=== PATIENT | male | born 1990 | race Caucasian/White ===

== ENCOUNTER 2021-07-23 16:01 | Outpatient (CLI) | payer OTHER, SELFPAY ==
--- NOTE | ~2021-07-23 | XR_ITS ---
XR wrist RT min 3V DATE: 07/23/2021 16:29 INDICATION: Bilateral medial wrist pain; no injury. TECHNIQUE: 4 views COMPARISON: None FINDINGS: No fracture or dislocation, periosteal reaction or bone destruction, erosive change or arnol drocalcinosis. Joint spaces are preserved. IMPRESSION: Negative Reviewed, dictated and finalized at location A. IMPRESSION: Negative
--- NOTE | ~2021-07-23 | XR_ITS ---
XR wrist LT min 3V DATE: 07/23/2021 16:30 INDICATION: Medial wrist pain for 2 weeks. No known injury. TECHNIQUE: 4 views COMPARISON: None FINDINGS: No fracture or dislocation, periosteal reaction or bone destruction, joint space narrowing, erosive change or chondrocalcinosis. IMPRESSION: Negative Reviewed, dictated and finalized at location A. IMPRESSION: Negative
[2021-07-23 16:30] LABS: Basophils Absolute Auto 0.03 K/mm3 (0.00-0.10); Basophils Percent Auto 0.4 % (0.0-1.0); Eosinophils Percent Auto 1.4 % (1.0-6.0); Hemoglobin 14.2 g/dL (14.0-18.0); Immature Granulocyte Absolute 0.02 K/mm3 (0.00-0.00); Immature Granulocyte Percent A 0.3 % (0.0-0.0); Lymphocytes Absolute Auto 2.01 K/mm3 (1.10-4.50); Lymphocytes Percent Auto 27.9 % (18.0-42.0); Mean Corpuscular Hemoglobin 29.8 pg (27.0-31.0); Mean Corpuscular Volume 90.1 fL (78.0-102.0); Mean Platelet Volume 9.6 fl (8.7-11.0); Monocytes Absolute Auto 0.55 K/mm3 (0.10-0.90); Monocytes Percent Auto 7.6 % (2.0-11.0); Neutrophils Absolute Auto 4.5 K/mm3 (1.7-7.2); Neutrophils Percent Auto 62.4 % (50.0-70.0); Platelet Count Result 291 K/mm3 (150-420); Red Blood Count 4.77 M/mm3 (4.70-6.10); White Blood Count 7.2 K/mm3 (4.8-10.8)
[2021-07-23 16:47] LABS: Alanine Aminotransferase 18 U/L (16-63); Albumin Level 4.4 g/dL (3.4-5.0); Alkaline Phosphatase 81 U/L (46-116); Anion Gap 8 mmol/L (8-16); Aspartate Amino Transferase 15 U/L (15-37); Bilirubin,Total 0.5 mg/dL (0.00-1.00); Blood Urea Nitrogen 15 mg/dL (7-18); Calcium 9.5 mg/dL (8.5-10.1); Carbon Dioxide 29 mmol/L (21-32); Chloride 102 mmol/L (98-108); Estimated Glomerular Filt Rate > 60; Glucose 86 mg/dL (70-99); Osmolality Calculated 287 mOsm/kg (285-295); Potassium 3.9 mmol/L (3.5-5.1); Sodium 139 mmol/L (136-145)
[2021-07-23 16:56] LABS: CRP < 0.2 mg/dL (0.0-0.9)
[2021-07-28 18:36] LABS: HLA B27 Negative (Negative)
== END 2021-07-23 16:02 | disposition home or self-care (01) ==
LOC: CHSLAB 16:05
PROVIDERS: PCP Internal Medicine; Visit Provider Internal Medicine
DX: M54.9 Dorsalgia, unspecified (principal); M25.532 Pain in left wrist; M25.531 Pain in right wrist
CPT/HCPCS: 36415; 73110; 80053; 85025; 86038; 86140; 86812

== ENCOUNTER 2021-08-26 15:48 | Outpatient (CLI) | payer OTHER, SELFPAY ==
--- NOTE | ~2021-08-26 | XR_ITS ---
XR knee RT 3V DATE: 08/26/2021 16:14 INDICATION: Twisting injury 2 weeks ago with persistent lateral right knee pain TECHNIQUE: AP, lateral and sunrise views COMPARISON: 03/03/2010 right knee FINDINGS: No fracture or dislocation or joint effusion, radiopaque intra-articular loose body or arnol drocalcinosis is detected. Joint spaces are well preserved. IMPRESSION: No significant abnormality Reviewed, dictated and finalized at location A. IMPRESSION: No significant abnormality
--- NOTE | ~2021-08-26 | XR_ITS ---
EXAMINATION: XR thoracic spine 3V DATE: 08/26/2021 16:13 INDICATION: Right-sided back pain TECHNIQUE: AP, lateral and lateral swimmer's views of the thoracic spine were obtained. COMPARISON: None. FINDINGS: There is no fracture, dislocation, or subluxation. The vertebral body heights, alignment, a nd intervertebral disc spaces are normal. The paravertebral soft tissues are unremarkable. IMPRESSION: 1. No acute osseous abnormality. Reviewed, dictated and finalized at location F.
== END 2021-08-26 15:49 | disposition home or self-care (01) ==
LOC: CHSIMG 15:50
PROVIDERS: PCP Internal Medicine; Visit Provider Nurse Practitioner Family
DX: M54.9 Dorsalgia, unspecified (principal); M25.561 Pain in right knee
CPT/HCPCS: 72072; 73562

== ENCOUNTER 2024-09-16 15:12 | Outpatient (CLI) | payer OTHER, SELFPAY ==
--- NOTE | ~2024-09-16 | XR_ITS ---
XR_[id number]_CR Ordering provider: Bala Burgess MD History: . cervical radiculopathy . Comparison: None. FINDINGS: VERTEBRAL BODIES: Normal height and alignment. No visible fracture or subluxation. The dens is intact . DISK SPACES: Well maintained. PARASPINOUS SOFT TISSUES: No prevertebral soft tissue swelling. IMPRESSION: No acute osseous abnormality cervical spine. Reviewed, dictated and finalized at location A.
== END 2024-09-16 15:13 | disposition home or self-care (01) ==
LOC: CHSIMG 15:15
PROVIDERS: PCP Internal Medicine; Visit Provider Internal Medicine
DX: M54.12 Radiculopathy, cervical region (principal)
CPT/HCPCS: 72040

== ENCOUNTER 2024-11-06 14:36 | Outpatient (CLI) | payer OTHER, SELFPAY ==
--- OUTSIDE RECORDS SUMMARY | 2024-11-06 14:40 | XMS_ITS | Clinical Summary ---
Author Organization [facility] Address [address] [place] [address] Care Team Providers Care Child Day Care Provider Name Role Phone Bala Burgess MD Primary Care Provider [phone] Allergies No known active allergies Medications omeprazole (PriLOSEC) 40 mg capsule 0 Active ibuprofen (ADVIL,MOTRIN) 800 mg tablet 0 Active potassium citrate ER (UROCIT-K) 10 mEq (1,080 mg) CR tablet Take 1 tablet (10 mEq total) by mouth 2 (two) times a day [address] (CYMBALTA) 30 mg capsule Take 1 capsule (30 mg total) by mouth daily 2 Active eluxadoline (Viberzi) 100 mg tablet Take 1 tablet (100 mg total) by mouth 2 (two) times a day 60 tablet 3 3 Active dexlansoprazole (DEXILANT) 60 mg capsule Take 1 capsule (60 mg total) by mouth daily 30 capsule [address] (PROTONIX) 40 mg EC tablet Take 1 tablet (40 mg total) by mouth 2 (two) times a day Take 1 tablet by mouth twice a day for two weeks, then take 1 tablet by mouth daily 90 tablet 1 3 Active famotidine (PEPCID) 20 mg tablet Take 1 tablet (20 mg total) by mouth 2 (two) times a day 180 tablet 4 Active hydrocortisone 2.5 % cream Apply topically 2 (two) times a day for 14 days May use for intermittent episodes of hemorrhoidal flares 30 g 5 Active dicyclomine (BENTYL) 20 mg tablet Take 1 tablet (20 mg total) by mouth 4 (four) times a day as needed (Abdominal cramping) 120 tablet 5 Active Active Problems Problem Noted Date Diagnosed Date Rectal bleeding 06/28/2024 Chronic diarrhea 06/28/2024 Gastroesophageal reflux disease without esophagi tis 01/24/2023 Esophageal dysphagia 04/18/2022 Assessment & Plan (01/24/2023 3:43 PM CDT): Dxilant trial Assessment & Plan (04/18/2022 2:46 PM HOME THEATER EXPERT): Continue omeprazol 40 every day and egd Chronic pain 12/03/2019 Irritable bowel syndrome with diarrhea 0 Assessment & Plan (04/18/2022 2:45 PM HOME THEATER EXPERT): Fresh fruit tid, bentyl 40 mg 30 mins ac dinner Assessment & Plan (03/08/2021 2:05 PM HOME THEATER EXPERT): vewry happy with the viberzi. Continue and return prn pr one yr Assessment & Plan (01/25/2021 3:21 PM CDT): Cbc cmp,esr,crp viberzi 1009 bid Return 4 weeks Assessment & Plan (11/18/2019 1:55 PM CDT): 1 yr of pc watery stool with urgency. No blood, no systemic sx/signs. Sx not daily. Offered colooscopy but he opts to try treat ibs-d. Will try hi fiber doiet and viberzi and review poop sheet in 4 weks. Encounters Date Type Department Care Team Description 10/25/2024 Telephone [facility] Gastroenterology at [address] [place] [address] Debo Guerrier Colonoscopy Cancel 10/08/2024 Telephone [facility] Gastroenterology at [address] [place] [address] Debo Guerrier Prep Instructions 08/28/2024 Telephone [facility] Gastroenterology at [place] 4 [facility] [address] [place] [address] Bala Burgess MD Appointment; Schedule Colonoscopy from Last 3 Months Surgical History Surgery Date Site/Laterality Comments ESOPHAGOGASTRODUODENOSCOPY Medical History Medical History Date Comments GERD (gastroesophageal reflux disease) IBS (irritable bowel syndrome) Social History Tobacco Use Types Packs/Day Years Used Date Smoking Tobacco: Never Smokeless Tobacco: Never Tobacco Cessation:Counseling Given: Not Answered AUDIT-C Answer Date Recorded Q1: How often do you have a drink containing alc ohol? Never 01/24/2023 Average Number of Drinks Not on file 023 Frequency of Binge Drinking Not on file 12/27 Personal Safety Answer Date Recorded Getting School Help Needed Denies 03/16 Sex and Gender Information Value Date Recorded Sex Assigned at Not on file Legal Sex Male 10:37 AM CDT Gender Identity Not on file Sexual Orientation Not on file Obstetrics History Last Filed Vital Signs Vital Sign Reading Time Taken Comments Blood Pressure 129/88 06/28/2024 2:20 PM CDT Pulse 76 01/24/2023 3:18 PM CDT Temperature 36.6 C (97.8 F) 05/02/2022 8:55 AM HOME THEATER EXPERT Respiratory Rate 18 05/02/2022 8:55 AM HOME THEATER EXPERT Oxygen Saturation 98% 06/28/2024 2:20 PM CDT Inhaled Oxygen Concentration - - Weight 114.3 kg (251 lb 14.4 oz) 06/28/2024 2:20 PM CDT Height 182.9 cm (6') 06/28/2024 2:20 PM CDT Body Mass Index 34.16 06/28/2024 2:20 PM CDT Plan of Treatment Upcoming Encounters Date Type Department Care Team (Late st Contact Info) Description 11/21/2024 Hospital Encounter [facility] 1 [place] [address] Cristino Barrera DO [address] [place] [address] [address] [place] [address] Scheduled Procedures Name Priority Associated Diagnoses Date/Ti me COLONOSCOPY Rectal bleeding Chronic diarrhea Health Maintenance Due Date Last Done Comments Depression Screening 1989 Hepatitis C Screening 1989 DTaP/Tdap/Td Vaccine (5 - Tdap) 2000 12/14/1994, 12/26/1991, 07/26/1990, Additional history exists Varicella Vaccines (1 of 2 - 13+ 2-dose series) 2002 Regular Well Visit/Exam 18-64 12/07/2007 HPV Vaccines (1 - 3-dose SCDM series) 2016 Influenza Vaccine (#1) 2024 Hepatitis B Screening Completed 06/19/2000 , 02/14/2000, 12/23/1999 Pneumococcal vaccine <65 Aged Out No longer eligible based on patient's age to complete this topic Insurance [facility] Advance Directives For more information, please contact: [phone] * Full Code (Latest Code Status on File) Date Activated Date Inactivated Comments 05/02/2022 7:23 AM 05/02/2022 1:26 PM Care Teams Child Day Care Provider Relationship Specialty Start Date End Date Bala Burgess MD PCP - General Internal Medicine 10/22/19
--- OUTSIDE RECORDS SUMMARY | 2024-11-06 14:40 | XMS_ITS | Clinical Summary ---
Author Organization [facility] Address [facility] [place] [address] Care Team Providers Care Conduit Reamer Operator Name Role Phone Bala Burgess MD Primary Care Provider [phone] Allergies No known active allergies Medications omeprazole 40 MG capsule Take 40 mg by mouth daily. Active polycarbophil (FIBER) 625 MG tablet Take 625 mg by mouth daily. Active HYDROcodone-acet aminophen 5-325 MG tabletIndication s:Acute Pain < 7 Day Supply Take 1 tablet by mouth every 6 (six) hours as needed. Indications : Acute Pain < 7 Day Supply 8 tablet 08/13/2020 Active potassium citrate CR (UROCIT-K 10) 10 MEQ (1080 MG) tablet Take 1 tablet (10 mEq total) by mouth 2 (two) times daily. 180 tablet 1 02/02/2021 Active Active Problems No known active problems Social History Tobacco Use Types Packs/Day Years Used Date Smoking Tobacco: Never Smokeless Tobacco: Never Alcohol Use Standard Drinks/Week Comments Never 0 (1 standard drink = 0.6 oz pur e alcohol) AUDIT-C Answer Date Recorded Frequency of Alcohol Consumption Never 08/18/2019 Average Number of Drinks Not on file 020 Frequency of Binge Drinking Not on file 07/26 Sex and Gender Information Value Date Recorded Sex Assigned at Not on file Legal Sex Male 11:32 PM COUNTERINTELLIGENCE ANALYST Gender Identity Not on file Sexual Orientation Not on file Last Filed Vital Signs Vital Sign Reading Time Taken Comments Blood Pressure 128/68 05/18/2021 2:28 AM COUNTERINTELLIGENCE ANALYST Pulse 87 05/18/2021 2:28 AM COUNTERINTELLIGENCE ANALYST Temperature 35.9 C (96.7 F) 05/18/2021 2:28 AM COUNTERINTELLIGENCE ANALYST Respiratory Rate 16 05/18/2021 2:28 AM COUNTERINTELLIGENCE ANALYST Oxygen Saturation 98% 05/18/2021 2:28 AM COUNTERINTELLIGENCE ANALYST Inhaled Oxygen Concentration - - Weight 117.9 kg (260 lb) 05/18/2021 2:28 AM COUNTERINTELLIGENCE ANALYST Height 185.4 cm (6' 1) 05/18/2021 2:28 AM COUNTERINTELLIGENCE ANALYST Body Mass Index 34.3 05/18/2021 2:28 AM COUNTERINTELLIGENCE ANALYST Plan of Treatment Health Maintenance Due Date Last Done Comments Annual Physical 1992 Hepatitis C 12/07/2007 DTaP, Tdap and Td Vaccines (1 - Tdap) 2008 12/14/1994, 12/26/1991, 07/26/1990, Additional history exists Hepatitis B Vaccines (1 of 3 - 19+ 3-dose series) 2008 HPV Vaccines (1 - 3-dose SCDM series) 2016 COVID-19 Vaccine (2023- season) 2023 Meningococcal B Vaccine Aged Out No l onger eligible based on patient's age to complete this topic Meningococcal Vaccine Aged Out No frantz max eligible based on patient's age to complete this topic Pneumococcal Vaccine: Pediatrics (0 to 5 Years) and At-Risk Patients (6 to 49 Years) Aged Out No longer eligible based on patient's age to complete this topic RSV Immunizations Under 20 Months Aged Out No longer eligible based on patient's age to complete this topic Insurance [facility] [employer] * Guarantor: Vic Montoya Account Type Relation to Patient Date of Phone Billing Address Ori Mackay B3 Self 1990 [address] [place] [address] [employer] Care Teams Conduit Reamer Operator Relationship Specialty Start Date End Date Bala Burgess MD [address] [place] [address] PCP - General INTERNAL MEDICINE 12/18/19
--- OUTSIDE RECORDS SUMMARY | 2024-11-06 14:40 | XMS_ITS | Encounter Summary ---
Author Organization [facility] Address [facility] [place] [address] Care Team Providers Care Household Personal Assistant Name Role Phone Bala Burgess MD Primary Care Provider [phone] Encounter Details Date Type Department Care Team (Late st Contact Info) Description 06/10/2017 Abstract [facility] CONVERSION [address] [place] [address] , Generic ConversionMD Social History Tobacco Use Types Packs/Day Years Used Date Smoking Tobacco: Never Assessed Sex and Gender Information Value Date Recorded Sex Assigned at Not on file Legal Sex Male 11:32 PM INVENTORY MANAGEMENT SPECIALIST Gender Identity Not on file Sexual Orientation Not on file documented as of this encounter Plan of Treatment Not on file documented as of this encounter Visit Diagnoses Not on filedocumented in this encounter Care Teams Household Personal Assistant Relationship Specialty Start Date End Date Bala Burgess MD [address] [place] [address] PCP - General INTERNAL MEDICINE 12/18/19 documented as of this encounter
--- OUTSIDE RECORDS SUMMARY | 2024-11-06 14:40 | XMS_ITS | Encounter Summary ---
Author Organization [facility] Address [address] [place] [address] Care Team Providers Care Mechanical Supervisor Name Role Phone Bala Burgess MD Primary Care Provider [phone] Encounter Details Date Type Department Care Team (Late st Contact Info) Description 09/01/2018 Abstract [facility] CONVERSION [address] [place], [place] [id number] , Generic Conversion, Social History Tobacco Use Types Packs/Day Years Used Date Smoking Tobacco: Never Assessed Sex and Gender Information Value Date Recorded Sex Assigned at Not on file Legal Sex Male 11:32 PM MECHANICAL MAINTENANCE WORKER Gender Identity Not on file Sexual Orientation Not on file documented as of this encounter Plan of Treatment Not on file documented as of this encounter Visit Diagnoses Not on filedocumented in this encounter Care Teams Mechanical Supervisor Relationship Specialty Start Date End Date Bala Burgess MD [address] [place] [id number] PCP - General INTERNAL MEDICINE 12/18/19 documented as of this encounter
--- OUTSIDE RECORDS SUMMARY | 2024-11-06 14:40 | XMS_ITS | Clinical Summary ---
Author Organization [facility] Address [address], [address] [address] Phone Care Team Providers Care Turf Keeper Name Role Phone Bala Burgess MD Primary Care Provider [phone] Social History Tobacco Use Types Packs/Day Years Used Date Smoking Tobacco: Never Assessed Sex and Gender Information Value Date Recorded Sex Assigned at Not on file Legal Sex Male 11:12 AM CDT Gender Identity Not on file Sexual Orientation Not on file Plan of Treatment Health Maintenance Due Date Last Done Comments Hepatitis C Virus (HCV) Screening 1989 TdaP Immunization 1989 Human Papillomavirus (HPV) Immunization (1 - 3-dose SCDM series) 2016 SARS-COV-2 Immunization ( season) 2023 Influenza Immunization (#1) 2024 Respiratory Syncytial Virus (RSV) Immunization (Adult) (1 - 1-dose 75+ series) 2064 DTaP/Tdap/Td Immunization Discontinued 1994, 12/26/1991, 07/26/1990, Additional history exists Hepatitis B Immunization Completed 001, 02/14/2000, 12/23/1999 Meningococcal Immunization (ACWY) Aged Out No longer eligible based on patient's age to complete this topic Pneumococcal Immunization Combined Aged Out No longer eligible based on patient's age to complete this topic Rotavirus Immunization Aged Out No lo nger eligible based on patient's age to complete this topic Care Teams Turf Keeper Relationship Specialty Start Date End Date Bala Burgess MD [address] [place] [address] PCP - General Internal Medicine 08/24/18
[2024-11-06 14:53] LABS: Hematocrit 42.6 % (40.0-54.0); Hemoglobin 13.9 g/dL (14.0-18.0); Mean Corpuscular HGB Conc 32.6 g/dL (32-36); Mean Corpuscular Hemoglobin 28.9 pg (27.0-31.0); Mean Corpuscular Volume 88.6 fL (78.0-102.0); Platelet Count Result 348 K/mm3 (150-420); Red Blood Count 4.81 M/mm3 (4.70-6.10); White Blood Count 9.2 K/mm3 (4.8-10.8)
[2024-11-06 14:54] LABS: Add Urine Microscopic? NO; Appearance Urine Clear (Clear); Glucose Urine UA Negative (Negative); Leukocyte Esterase Ur Negative (Negative); Nitrate Urine Negative (Negative); Specific Grav Ur >= 1.030 (1.010-1.020)
[2024-11-06 15:31] LABS: Cannabinoid Screen Urine Negative (Negative)
[2024-11-06 16:25] LABS: Alanine Aminotransferase 20 U/L (6-50); Albumin Level 4.8 g/dL (3.5-5.1); Alkaline Phosphatase 82 U/L (38-126); Anion Gap 9 mmol/L (4-12); Aspartate Amino Transferase 29 U/L (17-59); Bilirubin,Total 0.6 mg/dL (0.2-1.3); Blood Urea Nitrogen 12 mg/dL (9-20); CRP 0.7 mg/dL (<1.0); Calcium 10.0 mg/dL (8.4-10.2); Carbon Dioxide 26 mmol/L (22-30); Chloride 106 mmol/L (98-107); Estimated Glomerular Filt Rate > 60; Glucose 92 mg/dL (65-110); Magnesium 1.8 mg/dL (1.6-2.3); Osmolality Calculated 291 mOsm/kg (285-295); Potassium 4.0 mmol/L (3.4-5.0); Sodium 141 mmol/L (137-145); Total Protein 7.5 g/dL (6.3-8.2)
[2024-11-06 16:38] LABS: Free T4 Free Thyroxine 0.80 ng/dL (0.78-2.19)
[2024-11-06 16:39] LABS: Free T3 4.84 pg/mL (2.18-3.98)
[2024-11-06 16:52] LABS: Thyroid Stimulating Hormone 0.869 uIU/mL (0.465-4.680)
== END 2024-11-06 14:37 | disposition home or self-care (01) ==
PROVIDERS: PCP Internal Medicine; Visit Provider Internal Medicine
DX: R42 Dizziness and giddiness (principal); R25.1 Tremor, unspecified; F41.9 Anxiety disorder, unspecified; R51.9 Headache, unspecified
CPT/HCPCS: 36415; 80053; 80307; 81003; 83735; 84439; 84443; 84481; 85027; 86140

== ENCOUNTER 2024-11-13 09:57 | Outpatient (CLI) | payer OTHER, SELFPAY ==
--- NOTE | 2024-11-13 10:00 | NEURO_ITS ---
Impression: # Non-diabetic complains of left upper extremity pain. ? # Left Ulnar Neuropathy around the elbow ? # Normal Needle/ EMG exam Nerve Conduction Studies ?Stim Site NR Peak (ms) P-T Amp (?V) Site1 Site2 Delta-P (ms) Dist (cm) Trent (m/s) Left Median Anti Sensory (2-3nd Digit) Wrist ? 3.2 34.7 Wrist 2-3nd Digit 3.2 14.0 44 Wrist ? 3.2 31.6 Wrist 2-3nd Digit 3.2 14.0 44 Left Radial Anti Sensory (Base 1st Digit) Wrist ? 1.2 17.6 Wrist Base 1st Digit 1.2 0.0 Left Ulnar Anti Sensory (5th Digit) Wrist ? 2.8 33.8 Wrist 5th Digit 2.8 14.0 50 ?Stim Site NR Onset (ms) O-P Amp (mV) Site1 Site2 Delta-0 (ms) Dist (cm) Trent (m/s) Left Median Motor (Abd Poll Brev) Wrist ? 3.8 1.5 Elbow Wrist 5.3 32.0 60 Elbow ? 9.1 2.0 Left Ulnar Motor (Abd Dig Minimi) Wrist ? 3.4 6.3 A Elbow Wrist 6.1 31.0 51 A Elbow ? 9.5 4.7 B Elbow Wrist 4.4 23.0 52 B Elbow ? 7.8 2.7 F Wave Studies ?NR F-Lat (ms) L-R F-Lat (ms) Left Median (Mrkrs) (Abd Poll Brev) ? 33.63 Left Ulnar (Mrkrs) (Abd Dig Min) ? 32.81 Electromyography ?Side Muscle Nerve Root Ins Act Fibs Amp Dur Recrt Comment Left 1stDorInt Ulnar C8-T1 Nml Nml Nml Nml Nml Left Ext Indicis Radial (Post Int) C7-8 Nml Nml Nml Nml Nml Left Ext Digitorum Radial (Post Int) C7-8 Nml Nml Nml Nml Nml Left BrachioRad Radial C5-6 Nml Nml Nml Nml Nml Left PronatorTeres Median C6-7 Nml Nml Nml Nml Nml Left Abd Poll Brev Median C8-T1 Nml Nml Nml Nml Nml Left ABD Dig Min Ulnar C8-T1 Nml Nml Nml Nml Nml Left FlexPolLong Median (Ant Int) C7-8 Nml Nml Nml Nml Nml Left Abd Poll Long Radial (Post Int) C7-8 Nml Nml Nml Nml Nml
--- OUTSIDE RECORDS SUMMARY | 2024-11-13 10:11 | XMS_ITS | Clinical Summary ---
Author Organization [facility] Address [address], [address] [address] Phone Care Team Providers Care Rn Lactation Name Role Phone Bala Burgess MD Primary Care Provider [phone] Social History Tobacco Use Types Packs/Day Years [...] age to complete this topic Care Teams Rn Lactation Relationship Specialty Start Date End Date Bala Burgess MD [address] [place] [address] PCP - General Internal Medicine 08/24/18
--- OUTSIDE RECORDS SUMMARY | 2024-11-13 10:11 | XMS_ITS | Clinical Summary ---
Author Organization [facility] Address [address] [place] [address] Care Team Providers Care Physician Obstetrician Name Role Phone Bala Burgess MD Primary Care Provider [phone] Allergies No known active allergies Medications omeprazole [...] trial Assessment & Plan (04/18/2022 2:46 PM CREDIT RISK MODELER): Continue omeprazol 40 every day and egd Chronic pain 12/03/2019 Irritable bowel syndrome with diarrhea 0 Assessment & Plan (04/18/2022 2:45 PM CREDIT RISK MODELER): Fresh fruit tid, bentyl 40 mg 30 mins ac dinner Assessment & Plan (03/08/2021 2:05 PM CREDIT RISK MODELER): vewry happy with the viberzi. Continue and [...] Type Department Care Team Description 10/25/2024 Telephone [facility] Gastroenterology at [address] [place] [address] Debo Guerrier Colonoscopy Cancel 10/08/2024 Telephone [facility] Gastroenterology at [address] [place] [address] Debo Guerrier Prep Instructions 08/28/2024 Telephone [facility] Gastroenterology at [place] [address] [facility] [address] [place] [address] Bala Burgess MD Appointment; Schedule [...] 36.6 C (97.8 F) 05/02/2022 8:55 AM CREDIT RISK MODELER Respiratory Rate 18 05/02/2022 8:55 AM CREDIT RISK MODELER Oxygen Saturation 98% 06/28/2024 2:20 PM CDT Inhaled Oxygen Concentration - - Weight 114.3 kg (251 lb 14.4 oz) 06/28/2024 2:20 PM CDT Height 182.9 cm (6') 06/28/2024 2:20 PM CDT Body Mass Index 34.16 06/28/2024 2:20 PM CDT Plan of Treatment Upcoming Encounters Date Type Department Care Team (Late st Contact Info) Description 11/21/2024 Hospital Encounter [facility] [address] [place] [address] Cristino Barrera DO [address] [place] [address] [address] [place] [address] Scheduled Procedures Name Priority Associated Diagnoses Date/Ti [...] patient's age to complete this topic Insurance [facility] Advance Directives For more information, please contact: [phone] * Full Code (Latest Code Status on File) Date Activated Date Inactivated Comments 05/02/2022 7:23 AM 05/02/2022 1:26 PM Care Teams Physician Obstetrician Relationship Specialty Start Date End Date Bala Burgess MD PCP - General Internal Medicine 10/22/19
== END 2024-11-13 09:58 | disposition home or self-care (01) ==
PROVIDERS: PCP Internal Medicine; Visit Provider Internal Medicine
DX: G56.22 Lesion of ulnar nerve, left upper limb (principal)
CPT/HCPCS: 95886; 95909

== ENCOUNTER 2024-11-23 08:59 | Outpatient (CLI) | payer OTHER, SELFPAY ==
--- NOTE | ~2024-11-23 | MR_ITS ---
EXAMINATION: MR brain/brain stem wo con DATE: 11/23/2024 09:40 INDICATION: 2 months of headache and dizziness TECHNIQUE: Magnetic resonance imaging (MRI) of the brain and brainstem was performed without intravenous contrast. Sequences included sagittal and axial T1-weighted SE, axial diffusion-weighted FS SE, axial T2*-weighted GRE, axial T2-weighted FLAIR, and axial T2-weighted FSE. Postcontrast axial and coronal T1- weighted SE was obtained. Apparent diffusion coefficient (ADC) maps were created. COMPARISON: None. FINDINGS: There are no areas of restricted diffusion to suggest acute infarction. No intracranial hemorrhage or abnormal intracranial mass lesion. There are no intraparenchymal signal abnormalities seen on the other pulse sequences. The ventricles are symmetric and normal in size. There are no abnormal extra-axial fluid collections. Flow voids are seen in the cerebral arteries on the T2- weighted sequences consistent with their expected patency. Mild mucosal thickening in the left maxillary and bilateral ethmoid sinuses. Visualized orbits and soft tissues are unremarkable. IMPRESSION: 1. Normal brain. No acute intracranial process. Reviewed, dictated and finalized at location A.
--- OUTSIDE RECORDS SUMMARY | 2024-11-23 09:02 | XMS_ITS | Clinical Summary ---
Author Organization [facility] Address [address], [address] [address] Phone Care Team Providers Care Food Analyst Name Role Phone Bala Burgess MD Primary Care Provider [phone] Social History Tobacco Use Types Packs/Day Years [...] age to complete this topic Care Teams Food Analyst Relationship Specialty Start Date End Date Bala Burgess MD [address] [place] [address] PCP - General Internal Medicine 08/24/18
--- OUTSIDE RECORDS SUMMARY | 2024-11-23 09:02 | XMS_ITS | Clinical Summary ---
[facility] Organization [facility] Address [address] [place] [address] Care Team Providers Care Host Coordinator Name Role Phone Bala Burgess MD Primary Care Provider [phone] Allergies No known active allergies Medications omeprazole [...] trial Assessment & Plan (04/18/2022 2:46 PM REPORTING LEAD): Continue omeprazol 40 every day and egd Chronic pain 12/03/2019 Irritable bowel syndrome with diarrhea 0 Assessment & Plan (04/18/2022 2:45 PM REPORTING LEAD): Fresh fruit tid, bentyl 40 mg 30 mins ac dinner Assessment & Plan (03/08/2021 2:05 PM REPORTING LEAD): vewry happy with the viberzi. Continue and [...] Encounters Date Type Department Care Team Description 11/21/2024 Hospital Encounter [facility] [address] [place] [address] Cristino Barrera, 10/25/[address] [facility] Gastroenterology at [address] [place] [address] Debo Guerrier Colonoscopy Cancel 10/08/[address] [facility] Gastroenterology at [address] [place] [address] Debo Guerrier Prep Instructions 08/28/[address] [facility] Gastroenterology at [address] [place] [address] Bala Burgess MD Appointment; Schedule [...] 36.6 C (97.8 F) 05/02/2022 8:55 AM REPORTING LEAD Respiratory Rate 18 05/02/2022 8:55 AM REPORTING LEAD Oxygen Saturation 98% 06/28/2024 2:20 PM CDT Inhaled Oxygen Concentration - - Weight 114.3 kg (251 lb 14.4 oz) 06/28/2024 2:20 PM CDT Height 182.9 cm (6') 06/28/2024 2:20 PM CDT Body Mass Index 34.16 06/28/2024 2:20 PM CDT Plan of Treatment Health Maintenance Due Date [...] patient's age to complete this topic Insurance [facility] Advance Directives For more information, please contact: [phone] * Full Code (Latest Code Status on File) Date Activated Date Inactivated Comments 05/02/2022 7:23 AM 05/02/2022 1:26 PM Care Teams Host Coordinator Relationship Specialty Start Date End Date Bala Burgess MD PCP - General Internal Medicine 10/22/19
--- OUTSIDE RECORDS SUMMARY | 2024-11-23 09:02 | XMS_ITS | Encounter Summary ---
Author Organization [facility] Address [facility] [place] [address] Care Team Providers Care Asset Management Analyst Name Role Phone Bala Burgess MD Primary Care Provider [phone] Encounter Details Date Type Department Care Team (Late st Contact Info) Description 06/10/2017 Abstract [facility] CONVERSION [address] [place] [address] , Generic ConversionMD Social History Tobacco Use Types Packs/Day Years Used Date Smoking Tobacco: Never Assessed Sex and Gender Information Value Date Recorded Sex Assigned at Not on file Legal Sex Male 11:32 PM POWERHOUSE MECHANIC APPRENTICE Gender Identity Not on file Sexual Orientation Not on file documented as of this encounter Plan of Treatment Not on file documented as of this encounter Visit Diagnoses Not on filedocumented in this encounter Care Teams Asset Management Analyst Relationship Specialty Start Date End Date Bala Burgess MD [address] [place] [id number] PCP - General INTERNAL MEDICINE 12/18/19 documented as of this encounter
--- OUTSIDE RECORDS SUMMARY | 2024-11-23 09:02 | XMS_ITS | Encounter Summary ---
Author Organization [facility] Healthcare Address [address] [place] [address] Care Team Providers Care Counter Professional Name Role Phone Bala Burgess MD Primary Care Provider [phone] Reason for Visit * Auth/Cert (Routine) Specialty Diagnoses / Procedures Referred By Contac t Referred To Contact Diagnoses Rectal bleeding Chronic diarrhea Rectal bleeding [K62.5] Chronic diarrhea [K52.9] Procedures MS COLONOSCOPY FLX DX W/COLLJ SPEC WHEN PFRMD COLONOSCOPY Referral ID Status Reason Start Date Expiration Date Visits Re quested Visits Authorized [id number] 1 1 Encounter Details Date Type Department Care Team (Late st Contact Info) Description 11/21/2024 Hospital Encounter [facility] [address] [place] [address] Cristino Barrera, [address] [place] [address] Social History Tobacco Use Types Packs/Day Years Used Date Smoking Tobacco: Never Smokeless Tobacco: Never AUDIT-C Answer Date Recorded Q1: How often [...] documented as of this encounter Visit Diagnoses Diagnosis Rectal bleeding Hemorrhage of rectum and anus Chronic diarrhea Diarrhea documented in this encounter Admitting Diagnoses Diagnosis Rectal bleeding Hemorrhage of rectum and anus Chronic diarrhea Diarrhea documented in this encounter Care Teams Counter Professional Relationship Specialty Start Date End Date Bala Burgess MD PCP - General Internal Medicine 10/22/19 documented as of this encounter
--- OUTSIDE RECORDS SUMMARY | 2024-11-23 09:02 | XMS_ITS | Encounter Summary ---
Author Organization [facility] Address [address] [place] [address] Care Team Providers Care Customs And Border Protection Officer Name Role Phone Bala Burgess MD Primary Care Provider [phone] Encounter Details Date Type Department Care Team (Late st Contact Info) Description 09/01/2018 Abstract SFL CONVERSION [address] [place], [place] [id number] , Generic Conversion, Social History Tobacco Use Types Packs/Day Years Used Date Smoking Tobacco: Never Assessed Sex and Gender Information Value Date Recorded Sex Assigned at Not on file 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
== END 2024-11-23 09:00 | disposition home or self-care (01) ==
PROVIDERS: PCP Internal Medicine; Visit Provider Internal Medicine
DX: R51.9 Headache, unspecified (principal); R42 Dizziness and giddiness
CPT/HCPCS: 70551

== ENCOUNTER 2024-11-27 16:12 | Outpatient (CLI) | payer OTHER, SELFPAY ==
--- NOTE | ~2024-11-27 | XR_ITS ---
EXAM/ PROCEDURE: XR shoulder RT min 2V, XR shoulder LT min 2V - 11/27/2024 16:30 CDT HISTORY: 33 years old Male with BL Shoulder Pain COMPARISON: None available TECHNIQUE: Three view(s) each FINDINGS/ IMPRESSION: There are no fractures or dislocations.Joint spaces are within normal limits. Reviewed, dictated and finalized at location N.
--- OUTSIDE RECORDS SUMMARY | 2024-11-27 17:10 | XMS_ITS | Clinical Summary ---
Author Organization [facility] Office Building [facility] Address [address] [place] [address] Care Team Providers Care Penetration Tester Name Role Phone Bala Burgess MD Primary Care Provider [phone] Allergies No known active allergies Medications omeprazole [...] trial Assessment & Plan (04/18/2022 2:46 PM PEDIATRIC SPEECH THERAPIST): Continue omeprazol 40 every day and egd Chronic pain 12/03/2019 Irritable bowel syndrome with diarrhea 0 Assessment & Plan (04/18/2022 2:45 PM PEDIATRIC SPEECH THERAPIST): Fresh fruit tid, bentyl 40 mg 30 mins ac dinner Assessment & Plan (03/08/2021 2:05 PM PEDIATRIC SPEECH THERAPIST): vewry happy with the viberzi. Continue and [...] Department Care Team Description 11/21/2024 Hospital Encounter [facility] [address] [place] [address] Cristino Barrera, 10/25/2024 Telephone [facility] at [address] [place] [address] Debo Guerrier Colonoscopy Cancel 10/08/2024 Telephone [facility] at [address] [place] [address] Debo Guerrier Prep Instructions 08/28/2024 Telephone [facility] at [address] [place] [address] Bala Burgess MD Appointment; Schedule [...] 36.6 C (97.8 F) 05/02/2022 8:55 AM PEDIATRIC SPEECH THERAPIST Respiratory Rate 18 05/02/2022 8:55 AM PEDIATRIC SPEECH THERAPIST Oxygen Saturation 98% 06/28/2024 2:20 PM CDT [...] patient's age to complete this topic [facility] Advance Directives For more information, please contact: [phone] * Full Code (Latest Code Status on File) Date Activated Date Inactivated Comments 05/02/2022 7:23 AM 05/02/2022 1:26 PM Care Teams Penetration Tester Relationship Specialty Start Date End Date Bala Burgess MD PCP - General Internal Medicine 10/22/19
--- OUTSIDE RECORDS SUMMARY | 2024-11-27 17:10 | XMS_ITS | Clinical Summary ---
Author Organization [facility] Address [address], [address] [address] Phone Care Team Providers Care Prior Authorization Nurse Name Role Phone Bala Burgess MD Primary Care Provider [phone] Social History Tobacco Use Types Packs/Day Years [...] age to complete this topic Care Teams Prior Authorization Nurse Relationship Specialty Start Date End Date Bala Burgess MD [address] [place] [address] PCP - General Internal Medicine 08/24/18
--- OUTSIDE RECORDS SUMMARY | 2024-11-27 17:10 | XMS_ITS | Clinical Summary ---
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 Gender Identity Not on file Sexual Orientation Not on file Last Filed Vital Signs Vital Sign Reading Time Taken Comments Blood Pressure 128/68 05/18/2021 2:28 AM SHORTHAND TEACHER Pulse 87 05/18/2021 2:28 AM SHORTHAND TEACHER Temperature 35.9 C (96.7 F) 05/18/2021 2:28 AM SHORTHAND TEACHER Respiratory Rate 16 05/18/2021 2:28 AM SHORTHAND TEACHER Oxygen Saturation 98% 05/18/2021 2:28 AM SHORTHAND TEACHER Inhaled Oxygen Concentration - - Weight 117.9 kg (260 lb) 05/18/2021 2:28 AM SHORTHAND TEACHER Height 185.4 cm (6' 1) 05/18/2021 2:28 AM SHORTHAND TEACHER Body Mass Index 34.3 05/18/2021 2:28 AM SHORTHAND TEACHER Plan of Treatment Health Maintenance Due Date [...] patient's age to complete this topic Insurance [facility] [employer] * Guarantor: Vic Montoya Account Type Relation to Patient Date of Phone Billing Address Ori Mackay B3 Self 1990 [address] [place] [address] [employer] Care Teams Carton Forming Machine Adjuster Relationship Specialty Start Date End Date Bala Burgess MD [address] [place] [address] PCP - General INTERNAL MEDICINE 12/18/19
--- OUTSIDE RECORDS SUMMARY | 2024-11-27 17:10 | XMS_ITS | Encounter Summary ---
Author Organization [facility] Healthcare Address [address] [place] [address] Care Team Providers Care Miter Grinder Operator Name Role Phone Bala Burgess MD Primary Care Provider [phone] Reason for Visit * Auth/Cert (Routine) Specialty Diagnoses / Procedures Referred By Contac t Referred To Contact Diagnoses Rectal bleeding Chronic diarrhea Rectal bleeding [K62.5] Chronic diarrhea [K52.9] Procedures DC COLONOSCOPY FLX DX W/COLLJ SPEC WHEN PFRMD COLONOSCOPY Referral ID Status Reason Start Date Expiration Date Visits Re quested Visits Authorized [id number] 1 1 Encounter Details Date Type Department Care Team (Late st Contact Info) Description 11/21/2024 Hospital Encounter [facility] [address] [place] [address] rCistino Barrera, [address] [place] [address] Social History Tobacco Use Types Packs/Day Years [...] Diarrhea documented in this encounter Care Teams Miter Grinder Operator Relationship Specialty Start Date End Date Bala Burgess MD PCP - General Internal Medicine 10/22/19 documented as of this encounter
--- OUTSIDE RECORDS SUMMARY | 2024-11-27 17:10 | XMS_ITS | Encounter Summary ---
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
--- OUTSIDE RECORDS SUMMARY | 2024-11-27 17:10 | XMS_ITS | Encounter Summary ---
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
== END 2024-11-27 16:13 | disposition home or self-care (01) ==
LOC: CHSIMG 16:17
PROVIDERS: PCP Internal Medicine; Visit Provider Internal Medicine
DX: M25.512 Pain in left shoulder (principal); M25.511 Pain in right shoulder
CPT/HCPCS: 73030